=== PATIENT | male | born 1955 | race Caucasian/White ===

== ENCOUNTER 2019-03-31 12:40 | Emergency (ER) | payer MEDICARE, OTHER ==
[~2019-03-31] VITALS: Ht 180.3 cm; Wt 104.5 kg
[2019-03-31] MEDS ORDERED: morphine 2 MG/ML inj. syringe IV PRN (13:40)
[2019-03-31] MEDS ORDERED: normal saline 1000ML IV soln IVB ONE (13:40)
[2019-03-31] MEDS ORDERED: morphine 4 MG/ML inj SYRINge IV ONE (13:40)
[2019-03-31 13:46] VITALS: BP 127/64
[2019-03-31] MEDS ORDERED: iohexol 300mg/ml 100ml inj. ONE (13:57)
[2019-03-31 14:01] LABS: BASOPHILS # (AUTO) 0.1 X10'3 (0-0.2); BASOPHILS % (AUTO) 0.7 % (0-1); EOSINOPHILS # (AUTO) 0.1 X10'3 (0-0.9); EOSINOPHILS % (AUTO) 1.1 % (0-6); HEMATOCRIT 41.3 % (42.0-52.0); HEMOGLOBIN 14.5 g/dl (14.0-17.9); LYMPHOCYTES # (AUTO) 1.7 X10'3 (1.1-4.8); LYMPHOCYTES % (AUTO) 21.1 % (21-51); MEAN CORPUSCULAR HEMOGLOBIN 30.8 PG (27.0-31.0); MEAN CORPUSCULAR HGB CONC 35.1 g/dL (33.0-36.5); MEAN CORPUSCULAR VOLUME 87.8 FL (78-98); MEAN PLATELET VOLUME 6.6 FL (7.4-10.4); MONOCYTES # (AUTO) 0.8 X10'3 (0-0.9); MONOCYTES % (AUTO) 9.5 % (2-12); NEUTROPHILS # (AUTO) 5.5 X10'3 (1.8-7.7); NEUTROPHILS % (AUTO) 67.6 % (42-75); PLATELET COUNT 237 X10'3 (140-440); RED BLOOD COUNT 4.71 X10'6 (4.70-6.10); RED CELL DISTRIBUTION WIDTH 13.5 % (11.5-14.5); WHITE BLOOD COUNT 8.1 X10'3 (4.5-11.0)
[2019-03-31 14:25] LABS: ALANINE AMINOTRANSFERASE 48 U/L (12-78); ALBUMIN 3.4 G/DL (3.4-5.0); ALBUMIN/GLOBULIN RATIO 0.9 (1.1-1.5); ALKALINE PHOSPHATASE 95 IU/L (46-116); ANION GAP 11 (8-16); ASPARTATE AMINO TRANSFERASE 25 U/L (10-37); BILIRUBIN,TOTAL 0.9 MG/DL (0.1-1.0); BLOOD UREA NITROGEN 14 MG/DL (7-18); CALCIUM 8.4 MG/DL (8.5-10.1); CHLORIDE 102 MMOL/L (99-107); CREATININE 1.08 MG/DL (0.60-1.10); GLUCOSE 230 MG/DL (70-104); POTASSIUM 3.8 MMOL/L (3.5-5.1); SODIUM 135 MMOL/L (135-145); TOTAL CARBON DIOXIDE 21.6 MMOL/L (24-32); TOTAL PROTEIN 7.3 G/DL (6.4-8.2); eGFR 69 ML/MIN
[2019-03-31] MEDS ORDERED: piperacillin/tazo 3.375gm/50ml 50 ML IV ONE (14:55)
[2019-03-31] MEDS ORDERED: POLY17PO10 PO (16:22)
[2019-03-31] MEDS ORDERED: AMOX-422 PO (16:22)
[2019-04-01] MEDS ORDERED: SULF1TAB49 PO (14:58)
[2019-04-01] MEDS ORDERED: LINA145C PO (15:00)
[2019-04-01] MEDS ORDERED: OXYC-145 PO (15:01)
== END 2019-03-31 17:33 | disposition home or self-care (01) ==
LOC: ER 12:41
DX: K61.1 Rectal abscess (principal); I48.91 Unspecified atrial fibrillation; E11.9 Type 2 diabetes mellitus without complications; Z56.0 Unemployment, unspecified; Z91.013 Allergy to seafood; Z79.899 Other long term (current) drug therapy
CPT/HCPCS: 36415; 72193; 80053; 83605; 85025; 87040; 96365; 96375; 99284; J2270; J2543; J7030; Q9967

== ENCOUNTER 2019-04-01 12:01 | Emergency (ER) | payer MEDICARE, OTHER ==
[~2019-04-01] VITALS: Ht 175.3 cm; Wt 104.0 kg
[~2019-04-01 12:01] MED LIST: AMOX-422 PO; POLY17PO10 PO
[2019-04-01] MEDS ORDERED: LIDOcaine 1% W/epiNEPHrine 1:200,000 10ml vial IJ ONE (14:00)
[2019-04-01] MEDS ORDERED: LIDOcaine/epinephrine TOPICAL 3 ML syringe TOP ONE (14:00)
[2019-04-01] MEDS ORDERED: SULF1TAB49 PO (14:58)
[2019-04-01] MEDS ORDERED: LINA145C PO (15:00)
[2019-04-01] MEDS ORDERED: OXYC-145 PO (15:01)
[2019-04-01 15:16] VITALS: BP 110/77
== END 2019-04-01 15:17 | disposition home or self-care (01) ==
LOC: ER 12:02
DX: K61.1 Rectal abscess (principal); I48.91 Unspecified atrial fibrillation; Z87.891 Personal history of nicotine dependence; Z56.0 Unemployment, unspecified; Z91.013 Allergy to seafood; Z79.899 Other long term (current) drug therapy
CPT/HCPCS: 46040; 99284